=== PATIENT | male | born 1965 | race Two or more races ===

== ENCOUNTER → 2022-08-01 14:32 | Outpatient (REF) | payer OTHER, SELFPAY ==
--- NOTE | 2022-08-01 14:39 | CA_ITS ---
Transthoracic Echocardiogram Patient (Last, First, Middle): Melecio Jain, Gender: Male Date of : 1965 Age: 57 Procedure Date: 08/01/2022 Procedure Type: Transthoracic Echocardiogram Location: [place] Height: 172.72 cm Weight: 83.46 kg BSA: 1.97 m2 Heart Rate: bpm BP: 134 / 82 mmHg Delivery Aide: Referring MD: Rajiv Anthony MD Surveillance Systems Analyst: Rj Mora MD Symptoms: LOWER EXT EDEMA R60.0 Study Quality: Adequate ECG Rhythm: Sinus Conclusions: - Essentially normal study Findings Left Ventricle Normal left ventricular size, thickness, and systolic function. The visually estimated ejection fraction is between 60-65%. Spectral Doppler is indicative of a normal filling pattern. Peak GLS is -17.9%, within normal limits. Right Ventricle Normal right ventricular cavity size and systolic function. Atria Both atria are normal in size. There is no evidence of interatrial shunt. Aortic Valve Normal aortic valve structure and function. There is no aortic valve stenosis. There is no aortic valve regurgitation. Mitral Valve Normal mitral valve structure and function. There is trace mitral valve regurgitation. There is no mitral valve stenosis. Pulmonic Valve The pulmonic valve is likely normal. There is trace pulmonic valve regurgitation. Tricuspid Valve Normal tricuspid valve structure. There is trace tricuspid valve regurgitation. The right ventricular systolic pressure is normal. Normal right atrial pressure. There is no evidence of pulmonary hypertension. Great Vessels All visible segments of the aorta are normal in size. The pulmonary artery was not well visualized. Venous The inferior vena cava is normal in size. Pericardium/Pleural There is no evidence of pericardial effusion. Prior Study Comparison No prior study available for comparison. Measurements 2D Linear Measurements IVSd: 1.11 0.6-0.9/0.6-1.0 cm LVIDd: 4.44 3.9-5.3/4.2-5.9 cm LVIDd Index: 2.25 2.4-3.2/2.2-3.1 cm/m2 LVIDs: 2.57 2.0-3.6 cm LVPWd: 1.10 0.7-1.1 cm Ao Root: 3.10 2.1-3.5 cm LA Diam: 3.70 2.7-3.8/3.0-4.0 cm LAIDs Index: 1.88 1.5-2.3 cm/m2 LV Mass: 214.81 67-162/88-224 g LV Mass Index: 109.04 43-95/49-115 g/m2 LVOT Diam: 2.00 3.0+(-)1.3 cm Mitral Valve MV Pk E: 1.04 MV PK A: 0.66 MV Decel Time: 210.00 E/A: 1.60 E'Lateral: 13.20 E'Medial: 7.83 E/E' Med: 13.30 E/E' Lat: 7.90 PHT: 62.00 MVA PHT: 3.55 Decel [place]: 4.95 Aortic Valve AoV Pk [place]: 1.31 AoV Mn [place]: 0.80 AoV VTI: 0.32 AoV Pk Grad: 7.00 Aov Mn Grad: 3.00 LUCY Cont.VTI: 2.54 LVOT LVOT Pk [place]: 1.06 LVOT Mn [place]: 0.62 LVOT VTI: 0.26 LVOT Pk Grad: 4.00 LVOT Mn Grad: 2.00 LVOT Diam: 2.00 LVOT Area: 3.14 Diastolic Function MV Pk E: 1.04 MV Pk A: 0.66 E/A: 1.60 E'Medial: 7.83 E/E' Med: 13.30 E' Laterial: 13.20 E/E' Lat: 7.90 Right Ventricle TAPSE (mm): 28.00 TVS' [place]: 13.00 Tricuspid Valve TR Pk [place]: 1.89 TR Pk Grad: 14.00 RA Press: 3.00 RVSP: 17.00 Great Vessels Aorta Ao Root-2D: 3.10 2.0-3.7 cm Ao Asc: 3.50 2.1-3.4 cm Pulmonary Valve PV Pk [place]: 1.12 Peak PV Grad: 5.00 Updated in Other Vendor System with Status of Final Rj Mora MD electronically signed on 08/02/2022 4:51:07 PM with status of Final
== END ==
LOC: HO.CARD 14:32
PROVIDERS: PCP Internal Medicine; Visit Provider Internal Medicine
DX: R60.0 Localized edema (principal)
CPT/HCPCS: 93306; 93356